=== PATIENT | male | born 1980 | race Caucasian/White ===

== ENCOUNTER 2020-08-18 15:15 | Outpatient (CLI) | payer OTHER, SELFPAY ==
--- NOTE | 2020-08-18 15:16 | ECG_ITS ---
Measurements Intervals [place] Rate: 65 P: 2 IA: 146 QRS: 26 QRSD: 102 T: 47 QT: 358 QTc: 374 Interpretive Statements SINUS RHYTHM INCOMPLETE RIGHT BUNDLE BRANCH BLOCK BASELINE ARTIFACT- I, II, III, AVR, AVL, AVF BORDERLINE ECG Electronically Signed On 08-18-2020 16:05:42 FIRE CODE INSPECTOR by Juan Taylor D.O.
[2020-08-18 15:39] LABS: Albumin Level 4.9 g/dL (3.5-5.1)
[2020-08-18 15:49] LABS: Prealbumin 27.3 mg/dL (17.6-36.0)
[2020-08-18 16:42] LABS: Iron 72 ug/dL (49-181)
[2020-08-22 04:47] LABS: Vitamin B1 9 nmol/L (8-30)
== END 2020-08-18 15:16 | disposition home or self-care (01) ==
PROVIDERS: PCP Family Medicine; Visit Provider Surgery Plastic and Reconstructive Surgery
DX: L57.4 Cutis laxa senilis (principal); Z01.818 Encounter for other preprocedural examination
CPT/HCPCS: 36415; 82040; 83540; 84134; 84425; 93005

== ENCOUNTER → 2020-08-20 00:28 | Outpatient (CLI) | payer OTHER, SELFPAY ==
[2020-08-20 19:49] LABS: SARS-CoV-2 RNA PCR Negative
== END ==
PROVIDERS: PCP Family Medicine; Visit Provider Surgery Plastic and Reconstructive Surgery
DX: Z01.812 Encounter for preprocedural laboratory examination (principal); Z20.822 Contact with and (suspected) exposure to COVID-19
CPT/HCPCS: C9803; U0003; U0005

== ENCOUNTER 2020-08-23 00:35 | Day surgery (SDC) | payer OTHER, SELFPAY ==
[2020-08-17 15:16] VITALS: BMI 29.2
[2020-08-23] VITALS (12 sets, daily range): BP systolic 111–134; BP diastolic 46–76; PULSE 71–94; RESP 14–20; TEMP 36.2–37; O2SAT 97–100
[2020-08-23 06:38] LABS: Urine Cotinine NEGATIVE
--- NOTE | 2020-08-23 06:38 | P.PNAN_ITS ---
Anes - Initial Pre Proc Eval Procedure: Operation Date: 08/23/20 07:30 Proposed Procedures p Bilateral Brachioplasty - Celestine Nichole MD s Abdominoplasty - Celestine Nichole MD s Bilateral Reduction Gynecomastia - Celestine Nichole MD Date/Time: 08/23/20 06:38 Surgeon: Celestine Nichole MD Pre Op Diagnosis: Skin Laxity Patient Data Age: 39 Gender: M Height: 6 ft Weight: 97.7 kg Allergies Allergy/AdvReac Type Severity Reaction Status Date / Time No Known Allergies Allergy Verified 08/17/20 15:12 Home Medications Medication Instructions Recorded Confirmed Type docusate sodium 100 mg capsule 100 mg PO DAILY #14 cap 08/11/20 Rx ondansetron HCl 4 mg tablet 4 mg PO Q8H #28 tablet 08/11/20 Rx carisoprodol 350 mg tablet 350 mg PO TID PRN #21 tablet 08/14/20 08/14/20 Rx oxycodone-acetaminophen 5 mg-325 1 tablet PO Q6H PRN #15 tablet 08/14/2001/25 Rx mg tablet atomoxetine 18 mg PO DAILY 08/17/20 08/17/20 History Laboratory Tests 08/23/20 06:20 Cotinine Pending Patient hx anesthesia problems: none Family hx anesthesia problems: none [facility] Surgical History Surgical History History of vasectomy Social History Social History Smoking status: Never smoker Alcohol intake: never Living arrangements: with family Spiritual care concerns: No Anes - Eval Final PreProcedure Day of Procedure 08/23/20 06:38 Patient weight: overweight Heart: regular rate and rhythm Lungs: clear to auscultation Airway: Mallampati scale class 1 Neurological: alert and oriented Last oral intake: >/= 8 hours ASA classification: II Emergent: no Anesthetic plan: proceed Anesthesia type and monitoring: general ETT and standard monitoring Informed Consent: The patient's anesthetic plan and its attendant risks and benefits were discussed with the patient/family/POA. Questions were solicited and answers provided to the satisfaction of the patient/family/POA.
[2020-08-23] MEDS: LACTATED RINGERS 1,000 ML 30 ML IV CONT ×2 (06:50→14:28)
--- NOTE | 2020-08-23 07:07 | WPDHPUPDATE1 ---
History and Physical Update Update Date/Time: 08/23/20 07:07 History and Physical has been reviewed, including an updated exam of the patient. There are NO changes in the patient's condition. Risks, benefits, and alternatives have been discussed and questions answered. Patient agrees to proceed with procedure.
[2020-08-23] MEDS: ceFAZolin 2 GM/D5W 50 ML 2 GM/50 ML BAG IVPB (07:38)
--- NOTE | 2020-08-23 13:27 | SUR.OPER ---
EBL:50cc
--- NOTE | 2020-08-23 13:28 | SUR.OPER ---
urine:300cc
--- NOTE | 2020-08-23 14:00 | PM.PROC ---
Procedure Note - Detailed Date of procedure: 08/23/20 Pre-op diagnosis: Skin Laxity Post-op diagnosis: same Procedure performed: 1. Bilateral brachioplasty 2. Bilateral mastectomy for gynecomastia (with j throacoplasty) 3. Progressive tension abdominoplasty Description of procedure: Risks, benefits, alternatives were discussed in extensive detail. I want him to be very realistic about the risks involved as well as expectations. Discussed realistic expectations of outcomes. We discussed DVT/PE risks and management. Answered all of his questions to his satisfaction and consent was obtained. He was marked in the standing position preoperatively. He was taken to the operating room placed supine on the operating room table. Anesthesia was provided by anesthesiology and prepped and draped in a standard sterile fashion. Surgical time-out was taken. I verified the markings on the arms. Stab incisions were made and I tumesced with a tumescent solution. Once adequate time for hemostasis I used a 4 mm basket cannula to completely deep fat the planned resection area. In a standard strip avulsion technique starting from proximal to distal remove the tissue stapling as we went to verify tension-free closure. This was closed with 2-0 Vicryl followed by 3-0 strata fix in a running subcuticular 4-0 Monocryl and Steri-Strips. At the end of the procedure I did place Mickey wraps. I proceeded to the chest. Stab incisions were made. Tumesced with a tumescent solution. Ten blade used to make an incision and they central resection was taken as well as lateral extension. This connected to the brachioplasty incisions. I then tailor tacked into place. Completed suction lipectomy based on S.A.F.E. technique to a rolling pinch test and visualization. I also placed him in a sitting position and verified. I then closed using 2-0 Vicryl deep as a 3 point suture to obliterate all space. 2-0 Vicryl followed by 3-0 strata fix in a running subcuticular 4-0 Monocryl. Steri-Strips were placed. At the end of the procedure I did place an Mickey wrap. I tehn proceeded to the abdomen. I placed the patient in a flexed position to verify the upper and lower markings would reach. I then placed her supine. A thorough abdominal examination was completed. Stab incisions were made and used tumescent solution. A 10 blade was used to make the upper incision. I continued dissection down to the level of fascia. Elevated just what was necessary for repair of the diastasis and discontinuous undermining otherwise. I then again flexed the bed to verify the upper skin flap would reach the lower markings without tension. Once verified I placed her supine once again and a 10 blade used to make the lower incision. I elevated up to level the umbilicus and left the umbilicus intact on a well-vascularized stalk. The intervening tissue was removed. A 2 mm blunt cannula and Exparel which was mixed 20 cc in 100 cc for a total volume of 120 cc I injected deep to the fascia bilaterally as well as along the incision lines. I plicated the diastasis recti using 0 PDO stratafix barbed suture. This was in 2 separate layers using 2 separate sutures as well. I repaired around the umbilicus leaving plenty of room for well-vascularized stalk of the umbilicus with 2-0 PDS. The patient was flexed and starting from superior to inferior began plication using 2-0 Vicryl to obliterate all space in a standard progressive tension fashion. At the umbilicus I marked out the location of the skin and inset this with 3-0 Monocryl and 4-0 nylon. I continued the remainder of the plication using 2-0 Vicryl until I reached my lower planned scar line. I trimmed any excess skin of the upper flap making sure this was a tension-free closure. I then approximated using a 3 point suture with 2-0 Vicryl followed by 3-0 stratafix ,running subcuticular 4-0 Monocryl, and tissue glue. Fluffs and an abdominal binder were placed.
--- NOTE | 2020-08-23 16:00 | ADMGEN ---
This patient, David Lezama, was admitted to Medical Room 255-. Patient/family oriented to hospital policies and general routines including ID bracelet, bed and alarms, visiting hours, pain management, procedures, bathroom and other care routines, personal items, smoking policy, room service/diet, and visiting hours. Information on how to activate the Rapid Response Team has been discussed. Patient/Family are encouraged to report perceived risks to care and to ask questions if they do not understand what they are told or what they should do.
[2020-08-23] MEDS: LACTATED RINGERS 1,000 ML 125 ML IV CONT (16:11)
[2020-08-23] MEDS: ONDANSETRON INJ 4 MG/2 ML VIAL IV PUSH (16:14)
[2020-08-23] MEDS: MORPHINE SULFATE (*CRX) 2 MG/ML INJ IV PUSH (16:16)
[2020-08-23] MEDS: oxyCODONE/ACETAMINOPHEN (*CRX) 5-325 MG TABLET PO (17:38)
--- NOTE | 2020-08-23 18:42 | PC.NURSE ---
Attempted to get patient out of bed to chair. Patient able to get to side of bed and dangle feet. Became extremely dizzy and lightheaded. [place] like he was passing out. Assisted patient back to lying position and symptoms resolved after a few minutes. Fan obtained for patient and wet washcloth applied to forehead. Patient denied nausea. Stated he felt better after returning to supine position with HOB 30 degrees. Pillows under bilateral arms for elevation. Abdominal binder remains D/I along with alon wraps to bilateral arms and chest.
--- NOTE | 2020-08-23 18:44 | PC.NURSE ---
1800 dose of Soma not given as patient received 2 Oxycodones and is very drowsy since receiving pain medication.
--- NOTE | 2020-08-23 19:41 | PC.NURSE ---
Called Dr. Nichole and discussed patient condition with him. Notified him of incident when he got up to side of bed. Also asked him about holding Soma this evening. Discussed keeping mitchell catheter until tomorrow. Orders received.
[2020-08-23] MEDS: LACTATED RINGERS 1,000 ML 999 ML IV CONT (20:23)
[2020-08-23] MEDS: ENOXAPARIN 40 MG/0.4 ML SYRINGE SUB-Q (20:23)
[2020-08-23] MEDS: DOCUSATE SODIUM 100 MG CAPSULE PO (20:23)
[2020-08-24] VITALS: BP 113/49; PULSE 87; RESP 18; TEMP 36.9; O2SAT 97
[2020-08-24 04:00] VITALS: BP 111/43; PULSE 96; RESP 18; TEMP 36.3; O2SAT 98
[2020-08-24] MEDS: oxyCODONE/ACETAMINOPHEN (*CRX) 5-325 MG TABLET PO ×2 (05:53→17:29)
--- NOTE | 2020-08-24 07:00 | WPDPN ---
Progress Note: A&P Assessment and Plan (1) Skin laxity: Code(s): L57.4 - Cutis laxa senilis Status: Acute Assessment and Plan: Doing well after: 1. Bilateral brachioplasty 2. Bilateral mastectomy for gynecomastia (with j thoracoplasty) 3. Progressive tension abdominoplasty Will plan for discharge home. Today we had a lengthy discussion about the care. What monitor for. He will removal dressings later today. He may shower then replace abdominal binder to comfort as well as alon wrap arms and chest. I will see him back in a week. He understands we are always available with any questions or concerns. Also we discussed with any shortness of breath, chest pain, or other true medical emergency dial 911/proceed to the ER. This was a lengthy open-ended conversation making sure answered all of his questions. (2) History of weight loss: Code(s): Z87.898 - Personal history of other specified conditions Status: Acute (3) Chronic back pain: Code(s): M54.9 - Dorsalgia, unspecified; G89.29 - Other chronic pain Status: Acute Review of Systems Review of Systems: All systems reviewed & are unremarkable except as noted in HPI and below Exam Narrative: Exam Narrative: Chest and arms are soft. No evidence of hematoma. No seroma. Abdomen soft. No signs of infection. No hematoma. No seroma. Good color and capillary refill. No calf tenderness. Negative Homans. Const: General: comfortable, no acute distress, alert and awake; No acute distress Orientation/consciousness: oriented to person HENMT: Head: normal to inspection Ears: external ears normal General nose exam: Normal external nose present Face and sinus: normal facial exam Eyes: General: appearance normal, both eyes and all related structures Periorbital: periorbital findings normal Eyelids: eyelids normal Conjunctivae: conjunctivae normal Neck: Neck: normal visual inspection Chest: Chest palpation & inspection: normal inspection of the chest Resp: Effort & Inspection: normal respiratory effort and able to speak in complete sentences GI: Inspection: normal to inspection Neuro: General: oriented to person Psych: Appearance: grossly normal Mental Status: mental status grossly normal Objective Data Vital Signs Vital Signs: Vital Signs - 24 hr 08/23/20 14:28 08/23/20 14:40 08/23/20 14:50 Temperature 36.5 C Pulse Rate 80 80 84 Respiratory Rate 18 16 16 Blood Pressure 124/56 L 128/66 125/66 Pulse Oximetry 100 100 98 08/23/20 15:05 08/23/20 15:20 08/23/20 15:35 Temperature Pulse Rate 71 80 71 Respiratory Rate 16 14 14 Blood Pressure 121/64 126/66 134/64 Pulse Oximetry 97 98 98 08/23/20 16:20 08/23/20 16:50 08/23/20 17:50 Temperature 36.2 C L 36.3 C L 36.3 C L Pulse Rate 71 81 74 Respiratory Rate 16 16 16 Blood Pressure 124/50 L 113/50 L 118/52 L Pulse Oximetry 97 97 100 08/23/20 18:50 08/23/20 21:18 08/24/20 00:00 Temperature 37.0 C 36.9 C Pulse Rate 72 94 87 Respiratory Rate 16 16 18 Blood Pressure 118/53 L 111/46 L 113/49 L Pulse Oximetry 100 98 97 08/24/20 04:00 Temperature 36.3 C L Pulse Rate 96 Respiratory Rate 18 Blood Pressure 111/43 L Pulse Oximetry 98 Intake/Output Intake/Output: Intake & Output 08/21/20 08/22/20 08/23/20 08/24/20 23:59 23:59 23:59 23:59 Intake Total 1595 1200 Output Total 420 450 Balance 1175 750 Meds/Results Medications: Active Medications Generic Name Dose Route Start Last Admin Trade Name Freq PRN Reason Stop Dose Admin Carisoprodol 350 mg 08/23/20 18:00 08/23/20 18:44 Carisoprodol (*Crx) 350 Mg Tablet PO Not Given Q6HR [facility] Docusate Sodium 100 mg 08/23/20 21:00 08/23/20 20:23 Docusate Sodium 100 Mg Capsule PO 100 mg Q12HR LOGAN Administration Enoxaparin Sodium 40 mg 08/23/20 20:00 08/23/20 20:23 Enoxaparin 40 Mg/0.4 Ml Syringe SUB-Q 40 mg QPM LOGAN Administration Morphine Sulfate 2 m
--- NOTE | 2020-08-24 07:05 | PM.DS ---
DS: Admitting Diagnosis Admitting Diagnosis Admitting Diagnosis: Skin laxity DS: Discharge Diagnosis Discharge Diagnosis (1) Skin laxity: Code(s): L57.4 - Cutis laxa senilis Status: Acute Assessment and Plan: Will discharge home after: 1. Bilateral brachioplasty 2. Bilateral mastectomy for gynecomastia (with j throacoplasty) 3. Progressive tension abdominoplasty Follow-up in 1 week. He received Lovenox 1 the facility. He has chosen ambulation as his DVT prophylaxis home. This was discussed in great detail. (2) History of weight loss: Code(s): Z87.898 - Personal history of other specified conditions Status: Acute (3) Chronic back pain: Code(s): M54.9 - Dorsalgia, unspecified; G89.29 - Other chronic pain Status: Acute DS: Summary Hospital Course Hospital Course: Patient underwent: 1. Bilateral brachioplasty 2. Bilateral mastectomy for gynecomastia (with j throacoplasty) 3. Progressive tension abdominoplasty Initially postoperatively he had a degree of orthostatic hypotension however this is now improved with fluids. Since then postoperatively he has done well. Will plan for discharge home. Today we had a lengthy conversation about discharged care. About what monitor for. He understands we are available at any questions or concerns. Time Spent with Patient Time attestation: Total time spent providing and/or coordinating discharge services: Exam Narrative: Exam Narrative: Chest and arms are soft. No evidence of hematoma. No seroma. Abdomen soft. No signs of infection. No hematoma. No seroma. Good color and capillary refill. No calf tenderness. Negative Homans. Const: General: comfortable, no acute distress, alert and awake; No acute distress Orientation/consciousness: oriented to person HENMT: Head: normal to inspection Ears: external ears normal General nose exam: Normal external nose present Face and sinus: normal facial exam Eyes: General: appearance normal, both eyes and all related structures Periorbital: periorbital findings normal Eyelids: eyelids normal Conjunctivae: conjunctivae normal Neck: Neck: normal visual inspection Chest: Chest palpation & inspection: normal inspection of the chest Resp: Effort & Inspection: normal respiratory effort and able to speak in complete sentences GI: Inspection: normal to inspection Neuro: General: oriented to person Psych: Appearance: grossly normal Mental Status: mental status grossly normal Discharge Plan Discharge Patient Disposition: Home, Self-Care Discharge Instructions: POST OPERATIVE DISCHARGE INSTRUCTIONS FOR CELESTINE NICHOLE M.D. [facility] [address] [place] [address] [address] for 24 hours after anesthesia and while you are taking pain medication. Take all prescribed medication as directed Diet as tolerated. No lifting or activity that raises blood pressure for 48 hours. Regular walking / ambulation. No showering until directed to. Once you shower do not take pain medication before showering as the combination of medication and heat may cause you to feel dizzy or pass out. No pools or tubs for 2 weeks. Call with any questions or concerns. No lifting more than 20 pounds or straining for 6 weeks. Slowly stand up straight as tolerated over the week. Dressing Care: Continue compression 23 hours per day (abdominal binder, YOHAN wraps). May shower. If you have any questions or concerns, please call the office . If it is after hours you will be directed to the surgical consultant exchange. Shortness of breath, chest pain, or other medical emergency dial 911 / proceed to the Emergency Room. Patient Instructions: Pain Management After Surgery (DC) Stand Alone Forms: General Discharge Instructions Follow-up/Referrals: Celestine Nichole MD [Physician] - 1 Week Discharge Medications: Continued o
--- NOTE | 2020-08-24 07:36 | WPDANESPN ---
Anes - Prog Note Post-Op Date/Time: 08/24/20 07:36 Cardiovascular status: normal Respiratory status: normal Airway patency: baseline Mental status: baseline Post-Op hydration status: normal Vital Signs: Last Vital Signs Temp 36.3 C L 08/24/20 04:00 Pulse 96 08/24/20 04:00 Resp 18 08/24/20 04:00 BP 111/43 L 08/24/20 04:00 Pulse Ox 98 08/24/20 04:00 Pain Score (VAS): no complaints I/O: Intake & Output 08/23/20 08/23/20 08/24/20 15:59 23:59 07:59 Intake Total 125 1470 1200 Output Total 120 300 450 Balance 5 1170 750 Post-procedural complaints: none Patient Feedback: Patient satisfied with anesthetic care.
[2020-08-24 10:00] VITALS: BP 144/95; PULSE 66; RESP 16; TEMP 35.9; O2SAT 100
[2020-08-24] MEDS: DOCUSATE SODIUM 100 MG CAPSULE PO (10:44)
--- NOTE | 2020-08-24 11:00 | PC.NURSE ---
Patient crying in bed when returning to bed. States his pain in the abdominal incisions is severe when moving. Requesting pain meds. Percocet not due for another hour. Called Dr. Nichole and notified him of same. Orders received for one time dose of Percocet x [address] Nichole of patient voiding 50 cc since catheter removal early this morning in spite of very good po intake. Per Dr. Nichole, continue to monitor and bladder scan patient later today if still unable to void sufficient amounts. Also notified Dr. Nichole that patient has a lot of scrotal bruising. Dr. Nichole states this is to be expected with this type of surgery. Will continue to monitor.
[2020-08-24] MEDS: oxyCODONE/ACETAMINOPHEN (*CRX) 5-325 MG TABLET 2 TABLET PO (11:13)
[2020-08-24 15:00] VITALS: BP 147/86; PULSE 94; RESP 16; TEMP 36.8; O2SAT 98
[2020-08-24] MEDS: carisoprodoL (*CRX) 350 MG TABLET PO (15:19)
[2020-08-24] MEDS: ENOXAPARIN 40 MG/0.4 ML SYRINGE SUB-Q (17:29)
[2020-08-24 18:00] VITALS: BP 112/52; PULSE 106; RESP 16; TEMP 36.8; O2SAT 99
== END 2020-08-24 18:20 | disposition home or self-care (01) ==
LOC: ANHSURGERY 14:13 → ANH2MED 15:42
PROVIDERS: PCP Family Medicine; Visit Provider Surgery Plastic and Reconstructive Surgery
PROC: (CPT 15836; principal; 2020-08-23 07:30)
PROC: (CPT 15836; 2020-08-23 07:30)
PROC: (CPT 19300; 2020-08-23 07:30)
DX: Z41.1 Encounter for cosmetic surgery (principal); L57.4 Cutis laxa senilis; N62 Hypertrophy of breast; M54.9 Dorsalgia, unspecified; G89.29 Other chronic pain
CPT/HCPCS: 15836; 15830; 15847; 19300; 15877; 80307; A9270; C9290; J0171; J0330; J0690; J1100; J1170; J1650; J2250; J2270; J2405; J2704; J3010; J7120

== ENCOUNTER 2022-03-08 06:39 | Outpatient (CLI) | payer OTHER, SELFPAY ==
--- NOTE | ~2022-03-08 | MR_ITS ---
EXAMINATION: MR lumbar spine wo con DATE: 03/08/2022 07:18 INDICATION: Chronic midline low back pain without sciatica. TECHNIQUE: Magnetic resonance imaging (MRI) of the lumbar spine was performed without intravenous con trast. Sequences included sagittal T2-weighted FSE, sagittal T2-weighted FS FSE, sagittal T1-weighted FSE, and axial T2-weighted FSE. COMPARISON: None FINDINGS: There is 3 degrees levocurvature of lumbar spine. There is mild chronic anterior wedging of T12 and L1 vertebral bodies, likely physiologic. There is moderately decreased disc height at L1-L2 and mildly decreased disc height at L3-L4. The distal spinal cord signal intensity is normal. The con us medullaris is at T12. The following disc levels are specifically discussed: L1-L2: The disc is bulging and has an annular fissure. There is mild bilateral facet joint osteoarthr itis. There is mild left neural foraminal stenosis. There is mild central canal stenosis. L2-L3: The disc does not extend beyond the endplate margin. There is mild bilateral facet joint osteo arthritis. There is no neural foraminal stenosis. There is no central canal stenosis. L3-L4: The disc is bulging and has an annular fissure. There is mild left facet joint osteoarthritis. There is mild bilateral neural foraminal stenosis. There is mild central canal stenosis. L4-L5: The disc is bulging and has an annular fissure. There is mild bilateral facet joint osteoarthr itis. There is mild left neural foraminal stenosis. There is no central canal stenosis. L5-S1: The disc is bulging and has an annular fissure. There is mild bilateral facet joint osteoarthr itis. There is mild left neural foraminal stenosis. There is mild central canal stenosis. IMPRESSION: 1. Moderate lumbar spondylosis. Reviewed, dictated and finalized at location A.
== END 2022-03-08 06:40 | disposition home or self-care (01) ==
PROVIDERS: PCP Nurse Practitioner Family; Visit Provider Nurse Practitioner Family
DX: M47.896 Other spondylosis, lumbar region (principal)
CPT/HCPCS: 72148

== ENCOUNTER 2024-01-15 11:31 | Outpatient (CLI) | payer OTHER, SELFPAY ==
--- NOTE | ~2024-01-15 | XR_ITS ---
XR ankle LT min 3V Ordering provider: Saida Meade History: . pain hx of dislocation 5-24, still having pain . Comparison: None. FINDINGS: BONES: No acute fracture or dislocation. Calcaneal spur. Small bony fragment is seen near to the fibu la which may be a chip fracture. JOINT SPACES: Osteoarthritic changes in the medial ankle joint SOFT TISSUES: Normal. IMPRESSION: Small chip of bone near to the tip of the fibula which is suggestive of a fracture. Osteoarthritic changes of the medial aspect of the ankle joint. Reviewed, dictated and finalized at location A. IMPRESSION: Small chip of bone near to the tip of the fibula which is suggestive of a fract ure. Osteoarthritic changes of the medial aspect of the ankle joint.
== END 2024-01-15 11:32 ==
PROVIDERS: PCP Nurse Practitioner Family
DX: M25.572 Pain in left ankle and joints of left foot (principal); M19.072 Primary osteoarthritis, left ankle and foot; M89.8X7 Other specified disorders of bone, ankle and foot
CPT/HCPCS: 73610